=== PATIENT | male | born 2000 | race Caucasian/White ===

== ENCOUNTER 2019-02-03 11:50 | Day surgery (SDC) | payer MEDICAID ==
[~2019-02-03] VITALS: Ht 175.3 cm; Wt 93.0 kg
[2019-02-03] MEDS ORDERED: PROPOFOL 1% 20 ML VIAL IVP ONE (11:51)
[2019-02-03] MEDS ORDERED: LIDOCAINE/PF 2% 5 ML VIAL IM ONE (11:51)
[2019-02-03] MEDS ORDERED: SODIUM CHLORIDE 0.9% 1,000 ML IV ONE ×2 (12:30→14:09)
[2019-02-03] MEDS ORDERED: FentaNYL CITRATE-PF 100 MCG/2 ML VIAL ONE (12:41)
[2019-02-03] MEDS ORDERED: MIDAZOLAM HCL 5 MG/ML VIAL ONE (12:42)
== END 2019-02-03 14:55 | disposition home or self-care (01) ==
LOC: SURGERY 11:50
PROVIDERS: ATTEND Internal Medicine Gastroenterology
DX: K51.90 Ulcerative colitis, unspecified, without complications (principal); Z79.899 Other long term (current) drug therapy; Z98.890 Other specified postprocedural states
CPT/HCPCS: 45380; 88305; C1769; J2704; J3490; J7030; J2250; J3010